=== PATIENT | male | born 1945 | race Caucasian/White ===

== ENCOUNTER 2019-02-01 08:02 | Outpatient (CLI) | payer MEDICARE ==
--- NOTE | 2019-02-01 09:12 | RAD ---
XR Chest Pa Lat @ POB History: Dyspnea Comparison: Radiograph 2017 Findings: Lungs are hyperinflated. Scarring both lung bases. No pneumothorax or effusion. Multiple mi dline sternotomy wires with fracture of the caudal two wires. Mild vascular calcifications. Impression: Lung hyperinflation suggesting obstructive pulmonary disease otherwise no acute intrathor acic abnormality.
== END 2019-02-01 08:03 | disposition home or self-care (01) ==
LOC: RAD 08:02
PROVIDERS: ATTEND Internal Medicine Critical Care Medicine
DX: R06.00 Dyspnea, unspecified (principal)
CPT/HCPCS: 71046

== ENCOUNTER 2019-03-30 06:43 | Inpatient (IN) | payer MEDICARE ==
[2019-03-30] MEDS ORDERED: Albuterol Sulfate 2.5 mg/0.5 ml Neb ONE (07:04)
[2019-03-30] MEDS ORDERED: Albuterol Sulfate 2.5 mg/3 ml Neb ONE (07:05)
[2019-03-30 07:39] LABS: #Basophils 0.1 thou/uL (0.0-0.2); #Eosinphils 0.2 thou/uL (0.0-0.7); #Lymphocytes 2.4 thou/uL (1.20-3.40); #Monocytes 0.8 thou/uL (0.11-0.59); #Neutrophils 10.7 thou/uL (1.40-6.50); %Basophils 0.4 % (0.0-1.0); %Eosinophils 1.4 % (0.0-10.0); %Lymphocytes 16.7 % (21.0-51.0); %Monocytes 5.5 % (0.0-10.0); %Neutrophils 75.9 % (42.0-75.0); Hemoglobin 15.7 g/dL (14.0-18.0); Mean Corpuscular Hemoglobin 30.7 pg (27.0-31.0); Mean Corpuscular Volume 93.2 fL (78.0-98.0); Platelet Count 218 thou/uL (130-400); Red Blood Cell (RBC) Count 5.12 mill/uL (4.70-6.10); White Blood Cell (WBC) Count 14.1 thou/uL (4.8-10.8)
--- NOTE | 2019-03-30 07:47 | RAD ---
Chest AP view INDICATION: Dyspnea COMPARISON: Prior exam dated February 01, 2019 FINDINGS: Lungs:COPD changes stable Cardiac silhouette:Post-CABG changes stable. Vascular calcification of the aortic arch is stable. Pulmonary vasculature:Normal Pleural spaces:No pleural effusion or pneumothorax is demonstrated. Upper abdomen:No abnormality seen. Osseous structures: No acute osseous abnormality. Additional findings:None. IMPRESSION: No acute cardiopulmonary abnormality.
[2019-03-30] MEDS ORDERED: Ondansetron PF 4 MG/2 ML Vial IVP PRN (08:00)
[2019-03-30] MEDS ORDERED: Ondansetron ODT 4 MG TAB SL PRN (08:00)
[2019-03-30] MEDS ORDERED: Acetaminophen 325 MG TAB PO PRN (08:00)
[2019-03-30 08:02] LABS: ALT (SGPT) 17 U/L (8-55); AST (SGOT) 13 U/L (5-34); Albumin 4.5 g/dL (3.4-4.8); Alkaline Phosphatase 141 U/L (40-110); Anion Gap 14 mmol/L (10-20); BUN (Urea Nitrogen) 15 mg/dL (8.4-25.7); Bilirubin, Total 0.5 mg/dL (0.2-1.2); Calc. Creatinine Clearance 0 mL/min (70-130); Calcium 9.8 mg/dL (7.8-10.44); Carbon Dioxide 28 mmol/L (23-31); Chloride 99 mmol/L (98-107); Estimated GFR-MDRD 70; Globulin 3.5 g/dL (2.4-3.5); Glucose 182 mg/dL (83-110); Sodium 137 mmol/L (136-145)
[2019-03-30 08:31] LABS: Bacteria/HPF 1+ HPF (None Seen); Bilirubin Negative (Negative); Blood, Urine Trace (Negative); Clarity Clear (Clear); Glucose, Urine (Dipstick) Normal (Negative); Leukocyte Negative Leu/uL (Negative); Nitrite Negative (Negative); Protein, Urine (Dipstick) 300 mg/dL (Neg-Trace); RBC/HPF 0-3 HPF (0-3); Squamous Epithelial None Seen HPF (0-3); Urobilinogen Normal mg/dL (Less than 2); WBC/HPF 0-3 HPF (0-3)
[2019-03-30 10:27] LABS: Lactic Acid 2.7 mmol/L (0.5-2.2)
[2019-03-30 10:57] VITALS: BMI 29.5
[2019-03-30] MEDS ORDERED: FLU VACC TS2019-20(65YR UP)/PF 180 MCG/0.5 ML SYRINGE IM ONE (11:30)
--- NOTE | 2019-03-30 13:53 | CON ---
DATE OF CONSULTATION: HISTORY OF PRESENT ILLNESS: Nicho Castro sees Dr. Baxter in our office, presented with increasing shortness of breath, coughing, and wheezing, unresponsive to usual home medication. He said he got breathing treatment this morning. No relief in shortness of breath, coughing, or wheezing. Came to the hospital. Denies any fever or chills. Denies any chest pain. Denies any orthopnea or PND. He states he is smoking up to one cigarette a day and most days he can walk a block without getting markedly short of breath. PAST MEDICAL HISTORY: Coronary artery disease, peptic ulcer disease, hypertension, and COPD. PREVIOUS SURGERIES: Bypass surgery, left hip. SOCIAL HISTORY: No alcohol. Still smoking. HOME MEDICATIONS: Include 1. Flomax. 2. Metformin 500 mg twice a day. 3. Budesonide. 4. Aspirin. 5. Albuterol. ALLERGIES: NONE. SOCIAL AND FAMILY HISTORY: Unremarkable. REVIEW OF SYSTEMS: Otherwise, 10-point negative. PHYSICAL EXAMINATION: VITAL SIGNS: Sats are 95% on room air, temperature 98, pulse 103, blood pressure 112/73. CHEST: Bilateral wheezing. CARDIAC: Normal S1 and S2. No gallops. ABDOMEN: No masses. LABORATORY DATA: White count 14,000. Lytes are normal. H and H are unremarkable. X-ray shows no acute infiltrates. Previous CABG scar. IMPRESSION: Chronic obstructive pulmonary disease exacerbation and bronchitis. PLAN: Neb treatments. Schedule steroids. Empiric p.o. antibiotics will be initiated. Hopefully, when he is stable, he can be discharged home in the next several days. Consultation note, 70 minutes, 50% direct patient care. Job ID: [id number]
[2019-03-30] MEDS: methylPREDNISolone Sod Succ 40 MG VIAL IVP SCH ×2 (14:12→17:37)
[2019-03-30] MEDS ORDERED: Benzonatate 100 MG CAP PO PRN (18:48)
[2019-03-30] MEDS ORDERED: Dextrose 5% in Water 1,000 ML IV PRN (18:50)
[2019-03-30] MEDS ORDERED: Dextrose 50% Abboject 50 ML SYRINGE IVP PRN (18:50)
[2019-03-30] MEDS ORDERED: Budesonide 0.5 MG/2 ML NEB NEB SCH (19:00)
[2019-03-30] MEDS: Mometasone/Formoterol 120 PUFF INHALER INH SCH (19:20)
[2019-03-30] MEDS ORDERED: Nicotine 14 MG PATCH TOP SCH (20:00)
[2019-03-30] MEDS: Finasteride 5 MG TAB PO SCH (20:21)
[2019-03-30] MEDS: metFORMIN 500 MG TAB PO SCH (20:21)
[2019-03-30] MEDS: Simvastatin 40 MG TAB PO SCH (20:21)
[2019-03-30] MEDS: guaiFENesin ER 600 MG TAB PO SCH (20:21)
[2019-03-30] MEDS: Tamsulosin HCl 0.4 MG CAP PO SCH (20:21)
[2019-03-30] MEDS: Doxycycline 100 MG CAP PO SCH (20:27)
[2019-03-31] MEDS: methylPREDNISolone Sod Succ 40 MG VIAL IVP SCH ×2 (00:01→06:01)
[2019-03-31] MEDS: Insulin Regular 300 UNITS/3 ML VIAL SC PRN ×3 (00:02→12:06)
--- NOTE | 2019-03-31 00:29 | HP ---
CHIEF COMPLAINT: Exacerbation of COPD with bronchitis. HISTORY OF PRESENT ILLNESS: The patient is a 74-year-old male who 2 weeks ago began to have recurrent shortness of breath requiring him to get up in the attic, find his nebulizer, put some medicine and start using his nebulizer. He is continuing to smoke daily. It would occasionally lock up on him requiring to do to stack some of his neb treatments, but he would get relief in going to the next day, but on the day of admission, he locked up in his chest, was unable to get it, with repeated neb treatments improved, so that he called 911. EMS arrived. They not only did neb treatments, but gave him IV Solu-Medrol and by the time he got to the emergency room, he began to show some improvement. Dr. Oseguera saw him in the emergency room, continued to stack neb treatments and noted that with his elevated white count and his inability to maintain clear breath sounds, contacted Dr. Abbasi for admission. He was noted to have an elevated white count and is thought that we have early pneumonia or bronchitis in process. Chest x-ray does not show it as yet, but he may be very dry. PAST MEDICAL HISTORY: Significant for noncompliance medically and non-insulin dependent diabetes mellitus, BPH, coronary artery disease, peptic ulcer disease, hypertension, and COPD. PAST SURGICAL HISTORY: Bypass surgery and left hip surgery. SOCIAL HISTORY: He denies drinking, but he is still smoking. He is a . He is retired. ALLERGIES: NONE. REVIEW OF SYSTEMS: CONSTITUTIONAL: Denies fever or chills. Admits to cough and general malaise. HEENT: Denies drainage or ulcers in ears, nose, or throat. CHEST: With cough and shortness of breath. CARDIOVASCULAR: Denies palpitations or chest pain. GI: Denies nausea, vomiting, or diarrhea. : Denies dysuria, but has chronic low flow of his urine. Denies blood in urine or stool. MUSCULOSKELETAL: Denies swelling in his joints or erythema or pain. However, he does have general weakness. SKIN: No new rashes or lesions. NEUROLOGIC: Denies headaches or blurred vision. PSYCHIATRIC: Denies depression or anxiety. PHYSICAL EXAMINATION: VITAL SIGNS: On admission, blood pressure 133/68, pulse is 99, respirations 20 , O2 saturation 91% on room air. GENERAL: This is an obese, elderly male, alert, oriented, cooperative. HEENT: Normocephalic, atraumatic. Pupils are equal, round, and reactive to light. Extraocular muscles are intact. Arcus senilis bilaterally. TMs, nares, and pharynx are clear. NECK: Supple. Trachea midline. CHEST: With diminished breath sounds throughout. Occasional rhonchi. HEART: Regular rate and rhythm without murmur. ABDOMEN: Soft, nontender without hepatosplenomegaly. : Deferred. EXTREMITIES: Without clubbing, cyanosis, or edema. Normal range of motion present. Symmetrical muscular tone noted in upper and lower extremities. SKIN: Without acute rashes or lesions. NEUROLOGIC: Cranial nerves are intact. Gait and cerebellar function are intact. Sensory exam is intact. Mental status is nonfocal. LABORATORY DATA: Lab work thus far shows WBCs at 14.1, hemoglobin 15.7, hematocrit 47.7, platelets at 218. Sodium is 137, potassium 4.0, chloride 99, CO2 of 28, BUN 15, creatinine 1.04 with a GFR 70, glucose 182. Lactic acid at 2.5 initially, has gone up to 2.7. Liver functions unremarkable. Urinalysis shows 300 protein, trace blood, 1+ bacteria. Chest x-ray shows evidence of COPD, but no acute cardiopulmonary process. ASSESSMENT: 1. Exacerbation of chronic obstructive pulmonary disease. 2. Bronchitis. 3. Ldu-fqcvxep-qyqyofxym diabetes. 4. Long history of noncompliance with his diabetes, chronic obstructive pulmonary disease treatment and with his tobacco abuse. He does not come to his health care provider as requested. PLAN: IV steroids, antibiotics, scheduled neb treatments, and serial re- evaluation. Pulmonary consultation has already been obtained. Job ID: [id number] [facility]
[2019-03-31 06:19] LABS: #Lymphocytes 0.6 thou/uL (1.20-3.40); #Monocytes 0.5 thou/uL (0.11-0.59); #Neutrophils 13.9 thou/uL (1.40-6.50); %Eosinophils 0.2 % (0.0-10.0); %Lymphocytes 3.9 % (21.0-51.0); %Monocytes 3.4 % (0.0-10.0); %Neutrophils 92.5 % (42.0-75.0); Mean Corpuscular HGB CONC 33.1 g/dL (32.0-36.0); Mean Corpuscular Hemoglobin 30.5 pg (27.0-31.0); Mean Corpuscular Volume 92.2 fL (78.0-98.0); Mean Platelet Volume 8.8 fL (7.4-10.4); Platelet Count 215 thou/uL (130-400); RBC Distribution Width 14.1 % (11.5-14.5); Red Blood Cell (RBC) Count 4.59 mill/uL (4.70-6.10); White Blood Cell (WBC) Count 15.1 thou/uL (4.8-10.8)
[2019-03-31 06:25] LABS: Hemoglobin A1c 6.5 % (4.0-6.0)
[2019-03-31 06:37] LABS: Cardiac Risk 2.9 (Less than 4.5)
[2019-03-31] MEDS: Budesonide 0.5 MG/2 ML NEB NEB SCH ×2 (07:22→19:06)
[2019-03-31] MEDS: Mometasone/Formoterol 120 PUFF INHALER INH SCH ×2 (07:22→19:05)
[2019-03-31] MEDS: guaiFENesin ER 600 MG TAB PO SCH ×2 (09:30→21:34)
[2019-03-31] MEDS: Doxycycline 100 MG CAP PO SCH ×2 (09:30→21:34)
[2019-03-31] MEDS: Amlodipine 5 MG TAB PO SCH (09:30)
[2019-03-31] MEDS: metFORMIN 500 MG TAB PO SCH ×2 (09:30→21:34)
--- NOTE | 2019-03-31 10:30 | PRG ---
DATE OF SERVICE: 03/31/2019 SUBJECTIVE: This morning, he is better, less cough, less shortness of breath. OBJECTIVE: VITAL SIGNS: Saturations 98% on room air, temperature 97, blood pressure 146/77, pulse 86. CHEST: Less wheezing. CARDIAC: Normal S1, S2. No gallops. ABDOMEN: No masses. ASSESSMENT: Chronic obstructive pulmonary disease exacerbation, bronchitis. PLAN: P.o. prednisone, neb treatments, supportive care. Disposition as per primary care physician. Job ID: [id number]
[2019-03-31] MEDS ORDERED: Nicotine 21 MG PATCH TOP SCH ×2 (13:00)
--- NOTE | 2019-03-31 14:05 | RAD ---
EXAM: Chest PA and lateral: HISTORY: COPD exacerbation. Bronchitis. COMPARISON: 07/04/2016, 03/30/2019 FINDINGS: Sternotomy wires and mediastinal clips are noted. Heart: Normal cardiac silhouette Aorta: Atherosclerosis. Pulmonary vessels: Normal Costophrenic angles: Costophrenic angles are clear. Lungs: No consolidation or masses. Hyperinflation. Chronic changes. Pneumothorax: No pneumothorax Osseous structures: No osseous abnormalities IMPRESSION: No acute cardiopulmonary process.
[2019-03-31] MEDS ORDERED: Ramipril 5 MG CAP PO SCH (14:15)
[2019-03-31] MEDS ORDERED: Calcium Carbonate 500 MG ChewTAB PO PRN (21:03)
[2019-03-31] MEDS ORDERED: Calcium Carbonate 500 MG ChewTAB PO SCH (21:15)
[2019-03-31] MEDS: Tamsulosin HCl 0.4 MG CAP PO SCH (21:34)
[2019-03-31] MEDS: Finasteride 5 MG TAB PO SCH (21:34)
[2019-03-31] MEDS: Simvastatin 40 MG TAB PO SCH (21:34)
[2019-04-01 05:30] LABS: #Eosinphils 0.1 thou/uL (0.0-0.7); #Lymphocytes 2.2 thou/uL (1.20-3.40); %Basophils 0.2 % (0.0-1.0); %Eosinophils 0.4 % (0.0-10.0); %Lymphocytes 14.2 % (21.0-51.0); %Monocytes 6.8 % (0.0-10.0); %Neutrophils 78.3 % (42.0-75.0); Hemoglobin 13.9 g/dL (14.0-18.0); Mean Corpuscular HGB CONC 32.8 g/dL (32.0-36.0); Mean Corpuscular Hemoglobin 30.4 pg (27.0-31.0); Mean Corpuscular Volume 92.4 fL (78.0-98.0); Mean Platelet Volume 8.9 fL (7.4-10.4); Platelet Count 210 thou/uL (130-400); RBC Distribution Width 14.1 % (11.5-14.5); Red Blood Cell (RBC) Count 4.57 mill/uL (4.70-6.10); White Blood Cell (WBC) Count 15.3 thou/uL (4.8-10.8)
[2019-04-01] MEDS: Budesonide 0.5 MG/2 ML NEB NEB SCH (06:47)
[2019-04-01] MEDS: Mometasone/Formoterol 120 PUFF INHALER INH SCH (06:48)
[2019-04-01] MEDS ORDERED: predniSONE 20 MG TAB PO SCH (08:00)
[2019-04-01] MEDS: guaiFENesin ER 600 MG TAB PO SCH (08:55)
[2019-04-01] MEDS: Amlodipine 5 MG TAB PO SCH (08:55)
[2019-04-01] MEDS: Doxycycline 100 MG CAP PO SCH (08:56)
[2019-04-01] MEDS: metFORMIN 500 MG TAB PO SCH (08:56)
[2019-04-01] MEDS ORDERED: Ramipril 5 MG CAP PO SCH (09:00)
[2019-04-01 11:30] VITALS: BP 124/72; TEMP 97.9
--- NOTE | 2019-04-01 11:56 | PRG ---
DATE OF SERVICE: 04/01/2019 SUBJECTIVE: Nicho Castro is better this morning, less short of breath, less cough, less wheezing. OBJECTIVE: VITAL SIGNS: Saturations are 98% on room air, respiratory rate 18, and temperature 98.7, pulse 60, blood pressure 124/72. CHEST: No wheezing, crackles. CARDIAC: Normal S1, S2. No gallops. ABDOMEN: No masses. LABORATORY DATA: White count 15,000. ASSESSMENT: Chronic obstructive pulmonary disease exacerbation, bronchitis. PLAN: Disposition as per primary care physician. Follow up with Dr. Baxter in the office. Job ID: [id number]
--- NOTE | 2019-04-03 23:32 | PQF ---
CHANCE SHEFFIELD ANUP G [id number] CLINICAL DOCUMENTATION CLARIFICATION FORM: POST DISCHARGE Addendum to original discharge summary date: ____ Late entry note date: __ DATE: 04/03/19 ATTN: Dre Schreibre Please exercise your independent, professional judgment in responding to the clarification form. Clinical indicators are provided on the bottom of this form for your review Can you please further specify the acuity of Bronchitis based on the clinical indicators below? Please check appropriate box(s): [ ] Acute Bronchitis [ ] Chronic Bronchitis [ ] Acute on Chronic Bronchitis [ ] Other diagnosis please specify [ ] Unable to determine In addition, please specify: Present on Admission (POA): [ ] Yes [ ] No [ ] Unable to determine For continuity of documentation, please document condition throughout progress notes and discharge summary. Thank You. CLINICAL INDICATORS - SIGNS / SYMPTOMS / LABS H and P pg.1 - exacerbation of COPD with bronchitis H and P pg.1- recurrent shortness of breath requiring him to get up in attic Consult Dr. Seth 03/30 pg.1- increasing SOB, coughing and wheezing, unresponsive to usal home medication PN 04/01 pg.1- chronic obstructive pulmonary disease, bronchitis RISK FACTORS 74 years old Smoke daily- H and P pg.1 Non compliance medically- H and P pg.1 CAD-H and P pg.1 Hypertension- H and P pg.1 TREATMENTS: IV solu-Medrol- H and P pg.1 Neb treatments- H and P pg.1 Pulmonary Consult 11/ Empiric p.o Antibiotics- Consult Dr. Seth pg.2 Chest X ray 04/01 Prednisone 40mg PO- MAR (This form is maintained as a part of the permanent medical record) 2014 [employer]. All Rights Reserved Kristopher [email or web address] [not provided] MTDD
== END 2019-04-01 12:05 | disposition home or self-care (01) | DRG 192 ==
LOC: ERS 06:43 → T4-A 08:33
PROVIDERS: ADMIT Specialist; ATTEND Specialist
DX: J44.1 Chronic obstructive pulmonary disease with (acute) exacerbation (principal); I25.10 Atherosclerotic heart disease of native coronary artery without angina pectoris; K27.9 Peptic ulcer, site unspecified, unspecified as acute or chronic, without hemorrhage or perforation; E11.9 Type 2 diabetes mellitus without complications; N40.0 Benign prostatic hyperplasia without lower urinary tract symptoms; I10 Essential (primary) hypertension; Z96.652 Presence of left artificial knee joint; F17.210 Nicotine dependence, cigarettes, uncomplicated; E66.9 Obesity, unspecified; Z91.14 Patient's other noncompliance with medication regimen; Z95.5 Presence of coronary angioplasty implant and graft; Z95.1 Presence of aortocoronary bypass graft; Z79.84 Long term (current) use of oral hypoglycemic drugs; Z79.899 Other long term (current) drug therapy; Z68.29 Body mass index [BMI] 29.0-29.9, adult
CPT/HCPCS: 36415; 36416; 71045; 71046; 80053; 80061; 81003; 81015; 83036; 83605; 84443; 85025; 87040; 87086; 87149; 93005; 94640; 94644; 96361; 96365; 96366; J1815; J1956; J2920; J7512; J7611; J7620; J7626

== ENCOUNTER 2020-10-27 21:57 | Emergency (ER) | payer MEDICARE ==
[2020-10-27] MEDS ORDERED: Acetaminophen 500 MG TAB ONE (22:10)
[2020-10-27] MEDS ORDERED: Sodium Chloride 0.9% 100 ML ONE (22:26)
[2020-10-27] MEDS ORDERED: methylPREDNISolone Sod Succ/PF 125 MG/2 ML VIAL ONE (22:26)
[2020-10-27] MEDS ORDERED: cefTRIAXone\\ROCEPHIN 1 GM VIAL ONE (22:26)
[2020-10-27 22:35] LABS: Hemoglobin 14.7 g/dL (14.0-18.0); Mean Corpuscular HGB CONC 32.5 g/dL (32.0-36.0); Mean Corpuscular Hemoglobin 31.4 pg (27.0-31.0); Mean Corpuscular Volume 96.6 fL (78.0-98.0); Mean Platelet Volume 8.7 fL (7.4-10.4); Platelet Count 237 thou/uL (130-400); RBC Distribution Width 14.5 % (11.5-14.5); Red Blood Cell (RBC) Count 4.69 mill/uL (4.70-6.10); White Blood Cell (WBC) Count 21.3 thou/uL (4.8-10.8)
[2020-10-27 22:46] LABS: PTT 31.9 sec (22.9-36.1); Prothrombin Time 13.1 sec (12.0-14.7)
[2020-10-27 22:47] LABS: D-Dimer Test 0.7 *mcg/mL (0.27-0.43)
[2020-10-27 22:50] LABS: Band 1 % (5-11); Lymphocytes 14 % (21-51); MDiff Complete? YES; Monocytes 5 % (0-10); Neutrophil 80 % (42-75); Platelet Morphology Comment Appears Adequate; RBC Morphology Normal
[2020-10-27 22:54] LABS: ALT (SGPT) 26 U/L (8-55); AST (SGOT) 19 U/L (5-34); Alkaline Phosphatase 111 U/L (40-110); Anion Gap 17 mmol/L (10-20); BUN (Urea Nitrogen) 13 mg/dL (8.4-25.7); Bilirubin, Total 0.7 mg/dL (0.2-1.2); CK (CPK) 119 U/L (30-200); Calc. Creatinine Clearance 0 mL/min (70-130); Calcium 9.2 mg/dL (7.8-10.44); Carbon Dioxide 23 mmol/L (23-31); Chloride 100 mmol/L (98-107); Globulin 3.3 g/dL (2.4-3.5); Glucose 167 mg/dL (83-110); Potassium 4.9 mmol/L (3.5-5.1); Protein, Total 7.3 g/dL (5.8-8.1); Sodium 135 mmol/L (136-145)
[2020-10-27 22:58] LABS: Bilirubin Negative (Negative); Blood, Urine Trace (Negative); Glucose, Urine (Dipstick) Negative (Negative); Ketone, Urine Negative (Negative); Leukocyte Negative (Negative); Nitrite Negative (Negative); Protein, Urine (Dipstick) 30 mg/dL (Neg-Trace); Urobilinogen 0.2 mg/dL (Less than 2)
[2020-10-27 22:59] LABS: Bacteria/HPF None Seen HPF (None Seen); Clarity Clear (Clear); Mucous/LPF 2+ LPF (<2+); RBC/HPF 0-3 HPF (0-3); Squamous Epithelial 0-3 HPF (0-3); WBC/HPF 0-3 HPF (0-3)
[2020-10-28 00:49] LABS: SARS-CoV-2 NAA Rapid Test Not Detected (NotDetected)
== END 2020-10-28 02:02 | disposition short-term general hospital (02) ==
LOC: ERS 21:57
DX: J18.9 Pneumonia, unspecified organism (principal); Z20.822 Contact with and (suspected) exposure to COVID-19; I25.10 Atherosclerotic heart disease of native coronary artery without angina pectoris; I10 Essential (primary) hypertension; Z79.84 Long term (current) use of oral hypoglycemic drugs; Z79.899 Other long term (current) drug therapy
CPT/HCPCS: 71045; 80053; 82550; 83605; 84484; 85025; 85379; 85610; 85730; 87040; 87804 ×2; 93005; U0002; U0005; 36415; 81003; 81015; 96365; 96366; 96375; J0696; J1956; J2930; J3490